=== PATIENT | female | born 1995 | race Caucasian/White ===

== ENCOUNTER 2018-10-30 14:25 | Emergency (ER) | payer MEDICAID ==
[~2018-10-30] VITALS: Ht 160 cm; Wt 59.0 kg
[2018-10-30 14:44] VITALS: BP 147/102
[2018-10-30 15:20] LABS: URINE HCG NEGATIVE (NEG)
[2018-10-30 15:21] LABS: CLARITY,URINE CLOUDY (Clear); COLOR,URINE ORANGE (Yellow); UA COLLECTION TYPE CLN CATCH MIDSTREAM
[2018-10-30 15:32] LABS: MUCUS STRANDS FEW /LPF (Neg); SQUAMOUS EPITHELIAL CELL,UR MANY /LPF (FEW)
[2018-10-30 15:33] LABS: BACTERIA,URINE 1+ /HPF (Neg); RBC,URINE 0-2 /HPF (0-2); WBC,URINE 0-4 /HPF (0-4)
[2018-10-30] MEDS ORDERED: HYDR25CA PO (16:27)
[2018-10-31] MEDS ORDERED: ONDA4TAB6 PO (10:53)
== END 2018-10-30 16:36 | disposition home or self-care (01) ==
LOC: ER 14:26
DX: R30.0 Dysuria (principal); R35.0 Frequency of micturition; Z79.899 Other long term (current) drug therapy
CPT/HCPCS: 81001; 81025; 99283

== ENCOUNTER 2018-10-31 09:27 | Emergency (ER) | payer MEDICAID ==
[~2018-10-31] VITALS: Ht 160 cm; Wt 57.0 kg
[~2018-10-31 09:27] MED LIST: HYDR25CA PO
[2018-10-31] MEDS ORDERED: ONDA4TAB6 PO (10:53)
[2018-10-31 11:07] VITALS: BP 138/97
[2018-10-31 12:14] LABS: UA COLLECTION TYPE CLN CATCH MIDSTREAM
[2018-10-31 12:16] LABS: WBC,URINE 0-4 /HPF (0-4)
[2018-10-31 12:17] LABS: BACTERIA,URINE NONE SEEN /HPF (Neg); MUCUS STRANDS NONE SEEN /LPF (Neg); RBC,URINE NONE SEEN /HPF (0-2); SQUAMOUS EPITHELIAL CELL,UR MODERATE /LPF (FEW)
== END 2018-10-31 11:09 | disposition home or self-care (01) ==
LOC: ER 09:28
DX: N39.0 Urinary tract infection, site not specified (principal); Z79.899 Other long term (current) drug therapy
CPT/HCPCS: 81001; 99283